=== PATIENT | female | born 1950 | race Two or more races ===

== ENCOUNTER → 2017-10-03 | Outpatient (CLI) | payer MEDICARE ==
[~2017-10-03] MED LIST: CETI10TA22 PO; DULO60CA6 PO; GUAI600T47 PO; IBUP-985 PO; TRAM50TA PO
--- NOTE | 2017-10-03 17:02 | RAD ---
EXAMINATION: Magnetic resonance imaging (MRI) of the brain and brainstem without contrast 10/03/2017 2:45 PM Magnetic resonance angiography (MRA) of the [place] without contrast HISTORY: Weakness, vision loss in left eye. Confusion and disorientation. TECHNIQUE: Multiplanar multi-weighted MRI of the brain and brainstem was performed without intravenous contrast using the general brain protocol. Magnetic resonance angiography noncontrast [id number] imaging of the [place] was performed. Maximum intensity projection images of the [place] are provided. COMPARISON: None available. FINDINGS: There are foci of diffusion signal hyperintensity in the right postcentral gyrus, posterior superior right frontal gyrus, right avalos radiata, bilateral occipital lobes, left thalamus, bilateral cerebellar hemispheres, left middle frontal gyrus, and left post central gyrus compatible with multifocal acute infarcts. There is corresponding low signal on ADC maps. There is corresponding T2 signal hyperintensity and FLAIR signal hyperintensity compatible with subacute infarcts. Remote lacunar infarcts are noted in the bilateral avalos radiata. Remote lacunar infarct is noted in the right basal ganglia. There is a remote lacunar infarct in the right cerebellum. There is a focus of susceptibility artifact in the right dentate nucleus which may represent a microhemorrhage versus tiny cavernoma. The scalp and calvarium are normal. The superior sagittal sinus demonstrates normal venous flow. The corpus callosum is normal in shape and signal intensity. The pituitary and sella are normal. The brainstem and craniocervical junction are unremarkable. The ventricles are normal in size and position without evidence of hydrocephalus. The paranasal sinuses are normal. The visualized portions of the mastoids are unremarkable. The orbits appear normal. Normal flow voids are demonstrated in the carotid arteries and basilar artery. MRA: The course of the intracranial internal carotid arteries is normal. Mild irregularity along the cavernous segments may reflect atherosclerotic calcification. Anterior cerebral arteries are normal in course and caliber. Anterior communicating artery is present. M1 segments of the middle cerebral arteries appear normal in caliber. There is irregularity of the M2, M3 and sylvian branches compatible with intracranial atherosclerotic disease. Vertebral arteries are codominant. Mild irregularity of the basilar artery may reflect atherosclerotic changes. There is a origin of the right posterior cerebral artery. There may be a diminutive right P1 segment. Left posterior cerebral artery is normal in course and caliber. There is no aneurysm, vascular malformation or high-grade vessel stenosis/large vessel occlusion. IMPRESSION: 1. Multiple small foci of diffusion signal abnormality throughout the supratentorial and infratentorial brain parenchyma are compatible with subacute infarcts. Findings likely reflect embolic phenomena. 2. There is a focus of susceptibility artifact in the right dentate nucleus which may represent a microhemorrhage versus cavernoma versus embolus. 3. Mild to moderate intracranial atherosclerotic changes are present. No aneurysm, vascular malformation or high-grade vessel stenosis/large vessel occlusion. Critical results were discussed with Kelly Beltran at 4:55 PM on 10/03/2017. Electronically signed by: Bhavani Velazquez MD (10/03/2017 4:58 PM) [id number]
--- NOTE | 2017-10-03 17:02 | RAD ---
EXAMINATION: Magnetic resonance imaging (MRI) of the brain and brainstem without contrast 10/03/2017 2:45 PM Magnetic resonance angiography (MRA) of the [place] without contrast HISTORY: Weakness, vision loss in left eye. Confusion and disorientation. TECHNIQUE: Multiplanar multi-weighted MRI of the brain and brainstem was performed without intravenous contrast using the general brain protocol. Magnetic resonance angiography noncontrast [id number] imaging of the [place] was performed. Maximum intensity projection images of the [place] are provided. COMPARISON: None available. FINDINGS: There are foci of diffusion signal hyperintensity in the right postcentral gyrus, posterior superior right frontal gyrus, right avalos radiata, bilateral occipital lobes, left thalamus, bilateral cerebellar hemispheres, left middle frontal gyrus, and left post central gyrus compatible with multifocal acute infarcts. There is corresponding low signal on ADC maps. There is corresponding T2 signal hyperintensity and FLAIR signal hyperintensity compatible with subacute infarcts. Remote lacunar infarcts are noted in the bilateral avalos radiata. Remote lacunar infarct is noted in the right basal ganglia. There is a remote lacunar infarct in the right cerebellum. There is a focus of susceptibility artifact in the right dentate nucleus which may represent a microhemorrhage versus tiny cavernoma. The scalp and calvarium are normal. The superior sagittal sinus demonstrates normal venous flow. The corpus callosum is normal in shape and signal intensity. The pituitary and sella are normal. The brainstem and craniocervical junction are unremarkable. The ventricles are normal in size and position without evidence of hydrocephalus. The paranasal sinuses are normal. The visualized portions of the mastoids are unremarkable. The orbits appear normal. Normal flow voids are demonstrated in the carotid arteries and basilar artery. MRA: The course of the intracranial internal carotid arteries is normal. Mild irregularity along the cavernous segments may reflect atherosclerotic calcification. Anterior cerebral arteries are normal in course and caliber. Anterior communicating artery is present. M1 segments of the middle cerebral arteries appear normal in caliber. There is irregularity of the M2, M3 and sylvian branches compatible with intracranial atherosclerotic disease. Vertebral arteries are codominant. Mild irregularity of the basilar artery may reflect atherosclerotic changes. There is a origin of the right posterior cerebral artery. There may be a diminutive right P1 segment. Left posterior cerebral artery is normal in course and caliber. There is no aneurysm, vascular malformation or high-grade vessel stenosis/large vessel occlusion. IMPRESSION: 1. Multiple small foci of diffusion signal abnormality throughout the supratentorial and infratentorial brain parenchyma are compatible with subacute infarcts. Findings likely reflect embolic phenomena. 2. There is a focus of susceptibility artifact in the right dentate nucleus which may represent a microhemorrhage versus cavernoma versus embolus. 3. Mild to moderate intracranial atherosclerotic changes are present. No aneurysm, vascular malformation or high-grade vessel stenosis/large vessel occlusion. Critical results were discussed with Kelly Beltran at 4:55 PM on 10/03/2017. Electronically signed by: Bhavani Velazquez MD (10/03/2017 4:58 PM) [id number]
== END | disposition home or self-care (01) ==
LOC: MRI 14:39
PROVIDERS: ATTEND Physician Assistant Medical
DX: H54.62 Unqualified visual loss, left eye, normal vision right eye (principal); I70.8 Atherosclerosis of other arteries; R53.1 Weakness; R41.0 Disorientation, unspecified
CPT/HCPCS: 70544; 70551